=== PATIENT | female | born 2000 ===

== ENCOUNTER → 2021-02-28 | Outpatient (CLI) | payer BC ==
[2021-03-01 12:14] LABS: Beef IgE 0.12 kU/L (<0.10); Beef IgE Class CLASS 0/1; Lettuce IgE Class CLASS 0; Pork IgE Class CLASS 2
[2021-03-01 12:15] LABS: Salmon IgE <0.10 kU/L (<0.10); Salmon IgE Class CLASS 0; Yeast Bakers/Brew IgE <0.10 kU/L (<0.10); Yeast Bakers/Brew IgE Class CLASS 0
[2021-03-01 12:16] LABS: Apple IgE Class CLASS 0; Chicken IgE Class CLASS 0/1; Egg Yolk IgE Class CLASS 0; Gluten IgE Class CLASS 0; Oat IgE Class CLASS 0/1; Onion IgE 0.14 kU/L (<0.10); Onion IgE Class CLASS 0/1
[2021-03-01 12:17] LABS: Celery IgE 0.16 kU/L (<0.10); Celery IgE Class CLASS 0/1; Chocolate IgE Class CLASS 0; Latex IgE Class CLASS 0
[2021-03-01 12:18] LABS: Avocado Class CLASS 0/1; Banana IgE Class CLASS 0/1; Coffee IgE <0.10 kU/L (<0.10); Coffee IgE Class CLASS 0; Cow's Milk IgE Class CLASS 0/1; Egg White IgE 0.21 kU/L (<0.10); Hazelnut IgE <0.10 kU/L (<0.10); Hazelnut IgE Class CLASS 0; Kiwi IgE 0.13 kU/L (<0.10); Kiwi IgE Class CLASS 0/1; Peanut IgE 0.16 kU/L (<0.10); Potato IgE 0.13 kU/L (<0.10); Potato IgE Class CLASS 0/1; Soybean IgE 0.15 kU/L (<0.10); Tea IgE <0.10 kU/L (<0.10); Tea IgE Class CLASS 0
== END | disposition home or self-care (01) ==
LOC: LABWHC1 10:48
PROVIDERS: ATTEND Otolaryngology
DX: L50.0 Allergic urticaria (principal)
CPT/HCPCS: 36415; 86003